=== PATIENT | female | born 1985 | race Caucasian/White ===

== ENCOUNTER 2023-06-02 12:40 | Outpatient (CLI) | payer OTHER, MEDICAID, SELFPAY ==
--- NOTE | ~2023-06-02 | US_ITS ---
EXAMINATION: US pelvic complete w TV DATE: 06/02/2023 13:15 INDICATION: Menorrhagia. TECHNIQUE: Multiple transabdominal and transvaginal sonographic images of the pelvis were obtained. COMPARISON: None. FINDINGS: TRANSABDOMINAL ULTRASOUND: The uterus measures 7.8 x 5.6 x 5.1 cm. There is physiologic free fluid in the pelvis. TRANSVAGINAL ULTRASOUND: The endometrial complex measures 26 mm in thickness. The right ovary measures 3.9 x 3.5 x 3.1 cm. The re is a 3.6 cm cyst in right ovary, likely a follicular cyst. The left ovary measures 2.1 x 1.7 x 1.4 cm. There is normal vascular flow in the ovaries. IMPRESSION: 1. Thickened endometrial complex, consistent with endometrial hyperplasia versus polyp. 2. 3.6 cm cyst in right ovary, likely a follicular cyst. Reviewed, dictated and finalized at location E. IMPRESSION: 1. Thickened endometrial complex, consistent with endometrial hyperplasia versu s polyp. 2. 3.6 cm cyst in right ovary, likely a follicular cyst.
== END 2023-06-02 12:41 | disposition home or self-care (01) ==
PROVIDERS: PCP Family Medicine; Visit Provider Nurse Practitioner
DX: N92.0 Excessive and frequent menstruation with regular cycle (principal); R93.89 Abnormal findings on diagnostic imaging of other specified body structures; N83.201 Unspecified ovarian cyst, right side
CPT/HCPCS: 76830; 76856